=== PATIENT | female | born 1940 | race Caucasian/White ===

== ENCOUNTER 2016-08-14 14:06 | Emergency (ER) | payer OTHER ==
[~2016-08-14] VITALS: Ht 160 cm; Wt 53.5 kg
--- NOTE | ~2016-08-14 | EKG ---
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
[2016-08-14 14:57] LABS: URINE BILIRUBIN NEGATIVE (Negative); URINE BLOOD NEGATIVE (Negative); URINE COLOR YELLOW; URINE GLUCOSE-RANDOM* NEGATIVE (Negative); URINE KETONES NEGATIVE (Negative); URINE NITRITE NEGATIVE (Negative); URINE PROTEIN (DIPSTICK) NEGATIVE (Negative); URINE UROBILINOGEN 0.2 E.U./dl (0.2-1.0)
[2016-08-14] MEDS ORDERED: ZESTRIL40 MG PO (15:15)
[2016-08-14] MEDS ORDERED: CLONIDINE0.1 PO (15:16)
[2016-08-14] MEDS ORDERED: FISH OIL 1,001000 M2 PO (15:16)
[2016-08-14] MEDS ORDERED: VITAMIN A8000 UNI1 PO (15:17)
[2016-08-14] MEDS ORDERED: ASPIR 8181 M1 PO (15:17)
[2016-08-14] MEDS ORDERED: VITAMIN B-12500 MCG PO (15:17)
[2016-08-14] MEDS ORDERED: ONE DAILY FOR1 EAC1 PO (15:18)
[2016-08-14] MEDS ORDERED: VITAMIN D3400 UNIT PO (15:18)
[2016-08-14] MEDS ORDERED: VITAMIN E400 UNI2 PO (15:18)
[2016-08-14] MEDS ORDERED: BIOTIN5000 MCG PO (15:19)
[2016-08-14] MEDS ORDERED: CALCIUM 600 +1 EA11 PO (15:20)
[2016-08-14 15:31] VITALS: BP 183/68
== END 2016-08-14 15:32 | disposition home or self-care (01) ==
LOC: ER 14:06 → EDBD 14:06 → ER 15:32
PROVIDERS: Emergency Medicine
DX: R42 Dizziness and giddiness (principal); I10 Essential (primary) hypertension; F10.99 Alcohol use, unspecified with unspecified alcohol-induced disorder; Z88.2 Allergy status to sulfonamides